=== PATIENT | female | born 2005 | race Caucasian/White ===

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

== ENCOUNTER → 2023-08-19 | Outpatient (CLI) | payer OTHER, SELFPAY ==
--- NOTE | 2023-08-19 15:18 | RAD_ITS ---
STUDY: X-RAY - RIGHT FOOT CLINICAL: Female, 18 years old. Injury. TECHNIQUE: 3 views of the right foot. COMPARISON: None. FINDINGS: Normal talus, calcaneus, and tarsal bones. Normal visualized subtalar, talonavicular, calcaneocuboid, tarsal and tarsometatarsal articulations. Normal metatarsi. Normal metatarsophalangeal joint of the great toe. Normal tibial and fibular sesamoid bones. Normal interphalangeal joint of the great toe. Normal phalanges of the great toe. Normal second through fifth metatarsophalangeal joints. Normal interphalangeal joints and phalanges of the lesser toes. The soft tissue structures are unremarkable. There is no demonstrated fracture. RAD/Foot min 3 Views IMPRESSION: Normal x-ray examination of the right foot. Electronically Signed: Saravanan Abernathy MD at 15:49 EDT ,
== END | disposition home or self-care (01) ==
LOC: MTLAB 15:16
PROVIDERS: PCP Pediatrics; Referring Provider Physician Assistant; Visit Provider Physician Assistant
DX: T14.90XA Injury, unspecified, initial encounter (principal)
CPT/HCPCS: 73630